=== PATIENT | female | born 1990 | race Caucasian/White ===

== ENCOUNTER 2018-02-12 08:20 | Outpatient (CLI) | payer OTHER ==
[~2018-02-12 08:20] MED LIST: ESCI10TA PO; IRON18TA PO; OMEG500C3 PO
[2018-02-12 08:48] LABS: BASOPHILS % (AUTO) 0.3 % (0-1); EOSINOPHILS # (AUTO) 0.1 X10'3 (0-0.9); EOSINOPHILS % (AUTO) 1.9 % (0-6); HEMATOCRIT 38.9 % (35.0-45.0); HEMOGLOBIN 13.3 g/dl (12.0-16.0); LYMPHOCYTES # (AUTO) 1.9 X10'3 (1.1-4.8); LYMPHOCYTES % (AUTO) 38.4 % (21-51); MEAN CORPUSCULAR HEMOGLOBIN 32.1 PG (27.0-31.0); MEAN CORPUSCULAR HGB CONC 34.3 % (33.0-36.5); MEAN CORPUSCULAR VOLUME 93.7 FL (78-98); MEAN PLATELET VOLUME 8.1 FL (7.4-10.4); MONOCYTES # (AUTO) 0.5 X10'3 (0-0.9); MONOCYTES % (AUTO) 9.1 % (2-12); NEUTROPHILS # (AUTO) 2.5 X10'3 (1.8-7.7); NEUTROPHILS % (AUTO) 50.3 % (42-75); PLATELET COUNT 234 X10'3 (140-440); RED BLOOD COUNT 4.15 X10'6 (4.20-5.60); RED CELL DISTRIBUTION WIDTH 13.9 % (11.5-14.5)
[2018-02-12 09:16] LABS: ALANINE AMINOTRANSFERASE 26 U/L (12-78); ALBUMIN 3.7 G/DL (3.4-5.0); ALKALINE PHOSPHATASE 42 IU/L (46-116); ANION GAP 5 (8-16); ASPARTATE AMINO TRANSFERASE 21 U/L (10-37); BILIRUBIN,TOTAL 0.4 MG/DL (0.1-1.0); BLOOD UREA NITROGEN 18 MG/DL (7-18); BUN/CREATININE RATIO 24.7 (6.6-38.0); CALCIUM 8.6 MG/DL (8.5-10.1); CHLORIDE 107 MMOL/L (99-107); CHOL/HDL RATIO 2.5 (0.00-4.99); CHOLESTEROL 166 MG/DL (0-200); CREATININE 0.73 MG/DL (0.40-0.90); GLUCOSE 101 MG/DL (70-104); HDL CHOLESTEROL 67 MG/DL (35-60); LDL CHOLESTEROL 93 MG/DL (50-100); SODIUM 142 MMOL/L (135-145); TOTAL CARBON DIOXIDE 29.8 MMOL/L (24-32); TOTAL PROTEIN 7.3 G/DL (6.4-8.2); TRIGLYCERIDES 22 MG/DL (20-135); eGFR > 90 ML/MIN
== END 2018-02-12 23:59 | disposition home or self-care (01) ==
LOC: 64 CT 08:20
PROVIDERS: ATTEND Nurse Practitioner Family
DX: E78.5 Hyperlipidemia, unspecified (principal); R59.9 Enlarged lymph nodes, unspecified; R53.83 Other fatigue
CPT/HCPCS: 36415; 70490; 80053; 80061; 84439; 84443; 85025

== ENCOUNTER 2018-05-14 10:34 | Outpatient (CLI) | payer OTHER ==
[2018-05-14 13:23] LABS: CLARITY,URINE SLIGHTLY CLOUDY (Clear); COLOR,URINE YELLOW (Yellow); GLUCOSE, URINE NEGATIVE (Neg); KETONES,URINE NEGATIVE (Neg); LEUKOCYTE ESTERASE ,URINE NEGATIVE (Neg); NITRITES, URINE NEGATIVE (Neg); OCCULT BLOOD,URINE NEGATIVE (Neg); PROTEIN,URINE NEGATIVE (Neg); UROBILINOGEN,URINE 0.2 E.U/dL (0.2-1.0)
[2018-05-14 13:25] LABS: UA COLLECTION TYPE NON-SPECIFIED
[2018-05-14 13:27] LABS: BASOPHILS % (AUTO) 0.4 % (0-1); EOSINOPHILS % (AUTO) 0.6 % (0-6); HEMATOCRIT 38.9 % (35.0-45.0); HEMOGLOBIN 13.3 g/dl (12.0-16.0); LYMPHOCYTES # (AUTO) 1.8 X10'3 (1.1-4.8); LYMPHOCYTES % (AUTO) 23.8 % (21-51); MEAN CORPUSCULAR HEMOGLOBIN 32.4 PG (27.0-31.0); MEAN CORPUSCULAR HGB CONC 34.1 % (33.0-36.5); MEAN PLATELET VOLUME 7.9 FL (7.4-10.4); MONOCYTES # (AUTO) 0.5 X10'3 (0-0.9); NEUTROPHILS % (AUTO) 68.2 % (42-75); PLATELET COUNT 236 X10'3 (140-440); WHITE BLOOD COUNT 7.4 X10'3 (4.5-11.0)
[2018-05-14 13:31] LABS: BACTERIA,URINE 1+ /HPF (Neg); MUCUS STRANDS FEW /LPF (Neg); RBC,URINE 0-2 /HPF (0-2); SQUAMOUS EPITHELIAL CELL,UR FEW /LPF (FEW); WBC,URINE 0-4 /HPF (0-4)
[2018-05-14 13:43] LABS: URINE AMPHETAMINE SCREEN NEGATIVE (Neg); URINE BARBITUATE SCREEN NEGATIVE (Neg); URINE BENZODIAZEPINES SCREEN NEGATIVE (Neg); URINE CANNABINOID SCREEN NEGATIVE (Neg); URINE COCAINE SCREEN NEGATIVE (Neg); URINE METHADONE SCREEN NEGATIVE (Neg); URINE OPIATE SCREEN NEGATIVE (Neg); URINE PHENCYCLIDINE SCREEN NEGATIVE (Neg)
[2018-05-14 13:59] LABS: HIV ANTIBODY 1&2 RAPID NON-REACTIVE (Neg)
[2018-05-16 05:21] LABS: RPR Non Reactive (Non Reactive)
[2018-05-16 07:21] LABS: HBSAG SCREEN Negative (Negative); HEPATITIS C ANTIBODY 0.1 s/co ratio (0.0-0.9); RUBELLA ANTIBODIES, IGG 3.44 index (Immune >0.99)
== END 2018-05-14 23:59 | disposition home or self-care (01) ==
LOC: LAB 10:34
PROVIDERS: ATTEND Specialist
DX: Z34.01 Encounter for supervision of normal first pregnancy, first trimester (principal)
CPT/HCPCS: 36415; 80305; 81001; 83036; 85025; 86592; 86703; 86762; 86803; 86885; 86900; 86901; 87088; 87340

== ENCOUNTER 2018-07-17 08:38 | Outpatient (CLI) | payer OTHER | END 2018-07-17 23:59 | disposition home or self-care (01) | LOC: RAD 08:38 | PROVIDERS: ATTEND Specialist | DX: Z34.01 Encounter for supervision of normal first pregnancy, first trimester (principal) ==

== ENCOUNTER 2018-09-23 08:20 | Outpatient (CLI) | payer OTHER ==
[2018-09-23 09:07] LABS: GLUCOSE,FASTING GESTATIONAL 81 MG/DL (51-92)
== END 2018-09-23 23:59 | disposition home or self-care (01) ==
LOC: LAB 08:20
PROVIDERS: ATTEND Specialist
DX: Z34.03 Encounter for supervision of normal first pregnancy, third trimester (principal); Z3A.31 31 weeks gestation of pregnancy
CPT/HCPCS: 36415; 82952

== ENCOUNTER 2019-02-02 08:13 | Outpatient (CLI) | payer OTHER ==
[2019-02-02 08:40] LABS: CLARITY,URINE SLIGHTLY CLOUDY (Clear); COLOR,URINE YELLOW (Yellow); GLUCOSE, URINE NEGATIVE (Neg); KETONES,URINE NEGATIVE (Neg); LEUKOCYTE ESTERASE ,URINE NEGATIVE (Neg); NITRITES, URINE NEGATIVE (Neg); OCCULT BLOOD,URINE NEGATIVE (Neg); PH,URINE 5.5 (4.8-8.0); PROTEIN,URINE NEGATIVE (Neg); UROBILINOGEN,URINE 0.2 E.U/dL (0.2-1.0)
[2019-02-02 08:41] LABS: UA COLLECTION TYPE CLN CATCH MIDSTREAM
[2019-02-02 08:52] LABS: MUCUS STRANDS MANY /LPF (Neg); SQUAMOUS EPITHELIAL CELL,UR MODERATE /LPF (FEW)
[2019-02-02 08:53] LABS: BACTERIA,URINE NONE SEEN /HPF (Neg); RBC,URINE 0-2 /HPF (0-2); WBC,URINE 0-4 /HPF (0-4)
[2019-02-02 08:54] LABS: BASOPHILS % (AUTO) 0.4 % (0-1); EOSINOPHILS # (AUTO) 0.1 X10'3 (0-0.9); EOSINOPHILS % (AUTO) 1.7 % (0-6); HEMATOCRIT 39.9 % (35.0-45.0); HEMOGLOBIN 13.4 g/dl (12.0-16.0); LYMPHOCYTES # (AUTO) 2.1 X10'3 (1.1-4.8); LYMPHOCYTES % (AUTO) 37.5 % (21-51); MEAN CORPUSCULAR HEMOGLOBIN 30.8 PG (27.0-31.0); MEAN CORPUSCULAR HGB CONC 33.6 g/dL (33.0-36.5); MEAN CORPUSCULAR VOLUME 91.7 FL (78-98); MONOCYTES # (AUTO) 0.5 X10'3 (0-0.9); MONOCYTES % (AUTO) 9.2 % (2-12); NEUTROPHILS # (AUTO) 2.9 X10'3 (1.8-7.7); NEUTROPHILS % (AUTO) 51.2 % (42-75); PLATELET COUNT 271 X10'3 (140-440); RED BLOOD COUNT 4.35 X10'6 (4.20-5.60); RED CELL DISTRIBUTION WIDTH 13.6 % (11.5-14.5); WHITE BLOOD COUNT 5.6 X10'3 (4.5-11.0)
[2019-02-02 09:01] LABS: ALANINE AMINOTRANSFERASE 21 U/L (12-78); ALBUMIN 3.9 G/DL (3.4-5.0); ALBUMIN/GLOBULIN RATIO 1.1 (1.1-1.5); ALKALINE PHOSPHATASE 97 IU/L (46-116); ANION GAP 6 (8-16); ASPARTATE AMINO TRANSFERASE 19 U/L (10-37); BILIRUBIN,TOTAL 0.5 MG/DL (0.1-1.0); BLOOD UREA NITROGEN 25 MG/DL (7-18); BUN/CREATININE RATIO 27.5 (6.6-38.0); CALCIUM 9.2 MG/DL (8.5-10.1); CHLORIDE 106 MMOL/L (99-107); CHOL/HDL RATIO 3.3 (0.00-4.99); CHOLESTEROL 180 MG/DL (0-200); CREATININE 0.91 MG/DL (0.40-0.90); GLUCOSE 81 MG/DL (70-104); HDL CHOLESTEROL 55 MG/DL (35-60); LDL CHOLESTEROL 111 MG/DL (50-100); POTASSIUM 4.1 MMOL/L (3.5-5.1); SODIUM 140 MMOL/L (135-145); TOTAL CARBON DIOXIDE 28.2 MMOL/L (24-32); TOTAL PROTEIN 7.6 G/DL (6.4-8.2); TRIGLYCERIDES 36 MG/DL (20-135); eGFR 73 ML/MIN
== END 2019-02-02 23:59 | disposition home or self-care (01) ==
LOC: RAD 08:13
PROVIDERS: ATTEND Family Medicine
DX: R59.0 Localized enlarged lymph nodes (principal); F32.9 Major depressive disorder, single episode, unspecified; Z72.89 Other problems related to lifestyle
CPT/HCPCS: 36415; 76881; 80053; 80061; 81001; 84439; 84443; 85025

== ENCOUNTER 2019-06-17 08:38 | Outpatient (CLI) | payer OTHER | END 2019-06-17 23:59 | disposition home or self-care (01) | LOC: RAD 08:38 | PROVIDERS: ATTEND Surgery | DX: R10.11 Right upper quadrant pain (principal); R11.2 Nausea with vomiting, unspecified | CPT/HCPCS: 76700 ==

== ENCOUNTER 2019-07-28 12:47 | Outpatient (CLI) | payer OTHER | END 2019-07-28 23:59 | disposition home or self-care (01) | LOC: RAD 12:47 | PROVIDERS: ATTEND Family Medicine | DX: S93.421A Sprain of deltoid ligament of right ankle, initial encounter (principal); M76.61 Achilles tendinitis, right leg; M77.31 Calcaneal spur, right foot; M65.871 Other synovitis and tenosynovitis, right ankle and foot; X58.XXXA Exposure to other specified factors, initial encounter; Y93.89 Activity, other specified; Y92.89 Other specified places as the place of occurrence of the external cause; Y99.8 Other external cause status | CPT/HCPCS: 73721 ==

== ENCOUNTER 2019-08-05 08:56 | Outpatient (CLI) | payer OTHER ==
[~2019-08-05] VITALS: Ht 160 cm; Wt 70.5 kg
[2019-08-05] MEDS: sincalide inj 1.4 MCG in normal saline 100ml IV soln 98.6 ML IV ONE ×2 (10:03→10:23)
== END 2019-08-05 23:59 | disposition home or self-care (01) ==
LOC: RAD 08:56
PROVIDERS: ATTEND Surgery
DX: R10.11 Right upper quadrant pain (principal); R11.0 Nausea
CPT/HCPCS: 78227; A9537; J2805

== ENCOUNTER 2019-08-14 15:42 | Outpatient (CLI) | payer OTHER ==
[2019-08-14] MEDS ORDERED: iohexol 300mg/ml 100ml inj. ONE (15:59)
== END 2019-08-14 23:59 | disposition home or self-care (01) ==
LOC: 64 CT 15:42
PROVIDERS: ATTEND Family Medicine
DX: R25.1 Tremor, unspecified (principal)
CPT/HCPCS: 70470; Q9967

== ENCOUNTER 2020-01-06 09:36 | Outpatient (CLI) | payer OTHER ==
[2020-01-06 11:36] LABS: HEMOGLOBIN 13.2 g/dl (12.0-16.0); MEAN CORPUSCULAR HEMOGLOBIN 31.1 PG (27.0-31.0); MEAN PLATELET VOLUME 8.6 FL (7.4-10.4); RED BLOOD COUNT 4.25 X10'6 (4.20-5.60)
[2020-01-06 11:38] LABS: BASOPHILS % (AUTO) 0.3 % (0-1); EOSINOPHILS % (AUTO) 0.2 % (0-6); HEMATOCRIT 39.3 % (35.0-45.0); LYMPHOCYTES # (AUTO) 1.9 X10'3 (1.1-4.8); LYMPHOCYTES % (AUTO) 28.8 % (21-51); MEAN CORPUSCULAR HGB CONC 33.6 g/dL (33.0-36.5); MEAN CORPUSCULAR VOLUME 92.5 FL (78-98); MONOCYTES # (AUTO) 0.6 X10'3 (0-0.9); MONOCYTES % (AUTO) 9.4 % (2-12); NEUTROPHILS % (AUTO) 61.3 % (42-75); PLATELET COUNT 255 X10'3 (140-440); RED CELL DISTRIBUTION WIDTH 13.6 % (11.5-14.5); WHITE BLOOD COUNT 6.5 X10'3 (4.5-11.0)
[2020-01-06 11:39] LABS: CLARITY,URINE CLOUDY (Clear); COLOR,URINE YELLOW (Yellow); GLUCOSE, URINE NEGATIVE (Neg); KETONES,URINE NEGATIVE (Neg); LEUKOCYTE ESTERASE ,URINE NEGATIVE (Neg); NITRITES, URINE NEGATIVE (Neg); OCCULT BLOOD,URINE NEGATIVE (Neg); PH,URINE 7.5 (4.8-8.0); PROTEIN,URINE NEGATIVE (Neg); UROBILINOGEN,URINE 0.2 E.U/dL (0.2-1.0)
[2020-01-06 11:40] LABS: UA COLLECTION TYPE CLN CATCH MIDSTREAM
[2020-01-06 11:45] LABS: SQUAMOUS EPITHELIAL CELL,UR MODERATE /LPF (FEW)
[2020-01-06 11:46] LABS: BACTERIA,URINE 1+ /HPF (Neg)
[2020-01-06 11:47] LABS: AMORPHOUS PHOSPHATES 3+; RBC,URINE 0-2 /HPF (0-2); WBC,URINE 0-4 /HPF (0-4)
[2020-01-06 13:38] LABS: HIV ANTIBODY 1&2 RAPID NON-REACTIVE (Neg)
[2020-01-07 08:37] LABS: HBSAG SCREEN Negative (Negative); RUBELLA ANTIBODIES, IGG 2.51 index (Immune >0.99)
[2020-01-07 09:10] LABS: RPR Non Reactive (Non Reactive)
== END 2020-01-06 23:59 | disposition home or self-care (01) ==
LOC: LAB 09:36
PROVIDERS: ATTEND Specialist
DX: R35.0 Frequency of micturition (principal); Z34.90 Encounter for supervision of normal pregnancy, unspecified, unspecified trimester; Z3A.00 Weeks of gestation of pregnancy not specified
CPT/HCPCS: 36415; 81001; 85025; 86592; 86703; 86762; 86885; 86900; 86901; 87088; 87340; 87491

== ENCOUNTER 2020-04-26 10:55 | Outpatient (CLI) | payer OTHER ==
[2020-04-26 12:31] LABS: BASOPHILS % (AUTO) 0.3 % (0-1); EOSINOPHILS # (AUTO) 0.1 X10'3 (0-0.9); HEMATOCRIT 38.5 % (35.0-45.0); HEMOGLOBIN 13.2 g/dl (12.0-16.0); LYMPHOCYTES # (AUTO) 1.9 X10'3 (1.1-4.8); LYMPHOCYTES % (AUTO) 22.3 % (21-51); MEAN CORPUSCULAR HEMOGLOBIN 32.6 PG (27.0-31.0); MEAN CORPUSCULAR HGB CONC 34.2 g/dL (33.0-36.5); MEAN CORPUSCULAR VOLUME 95.4 FL (78-98); MEAN PLATELET VOLUME 8.6 FL (7.4-10.4); MONOCYTES # (AUTO) 0.6 X10'3 (0-0.9); MONOCYTES % (AUTO) 6.5 % (2-12); NEUTROPHILS % (AUTO) 69.9 % (42-75); PLATELET COUNT 224 X10'3 (140-440); RED BLOOD COUNT 4.04 X10'6 (4.20-5.60); RED CELL DISTRIBUTION WIDTH 13.8 % (11.5-14.5); WHITE BLOOD COUNT 8.6 X10'3 (4.5-11.0)
[2020-04-27 08:22] LABS: RPR Non Reactive (Non Reactive)
== END 2020-04-26 23:59 | disposition home or self-care (01) ==
LOC: LAB 10:55
PROVIDERS: ATTEND Specialist
DX: O24.419 Gestational diabetes mellitus in pregnancy, unspecified control (principal)
CPT/HCPCS: 36415; 82950; 85025; 86592

== ENCOUNTER 2020-05-09 08:13 | Outpatient (CLI) | payer OTHER ==
[2020-05-09 09:22] LABS: GLUCOSE,FASTING GESTATIONAL 87 MG/DL (51-92)
== END 2020-05-09 23:59 | disposition home or self-care (01) ==
LOC: LAB 08:13
PROVIDERS: ATTEND Specialist
DX: O24.419 Gestational diabetes mellitus in pregnancy, unspecified control (principal)
CPT/HCPCS: 36415; 82952; 83036

== ENCOUNTER 2020-12-19 08:23 | Emergency (ER) | payer BC ==
[~2020-12-19] VITALS: Ht 160 cm; Wt 72.7 kg
[2020-12-19 08:25] VITALS: BP 150/81
--- NOTE | 2020-12-19 08:37 | NUR ---
Spoke to EDRI Torey regarding pt's symptoms. He is comforatble not calling [facility]roke Alert at this time.
[2020-12-19] MEDS ORDERED: CEPH500C5 PO (09:39)
== END 2020-12-19 09:53 | disposition home or self-care (01) ==
LOC: ER 08:24
DX: L03.811 Cellulitis of head [any part, except face] (principal); Z79.2 Long term (current) use of antibiotics; Z79.899 Other long term (current) drug therapy
CPT/HCPCS: 99283